=== PATIENT | female | born 1965 | race Native Hawaiian/Other Pacific Islander ===

== ENCOUNTER 2017-03-21 12:56 | Outpatient (CLI) | payer OTHER, BC | END 2017-03-21 20:15 | disposition home or self-care (01) | LOC: MAMMO 12:56 | DX: Z12.31 Encounter for screening mammogram for malignant neoplasm of breast (principal) ==

== ENCOUNTER 2017-12-16 07:55 | Outpatient (CLI) | payer OTHER, BC | END 2017-12-16 19:14 | disposition home or self-care (01) | LOC: MRI 07:55 | DX: M54.17 Radiculopathy, lumbosacral region (principal) ==

== ENCOUNTER 2019-08-03 06:44 | Emergency (ER) | payer OTHER, BC ==
[~2019-08-03] VITALS: Ht 162.6 cm; Wt 78.0 kg
[2019-08-03 06:51] VITALS: BP 162/61; TEMP 97.7
== END 2019-08-03 07:33 | disposition home or self-care (01) ==
LOC: ED 06:44
DX: M54.5 Low back pain (principal); G89.29 Other chronic pain; M54.16 Radiculopathy, lumbar region
CPT/HCPCS: 96372; 99283; J1885; J2930

== ENCOUNTER 2019-08-04 09:56 | Outpatient (CLI) | payer OTHER, BC | END 2019-08-04 19:09 | disposition home or self-care (01) | LOC: MRI 09:56 | DX: M54.5 Low back pain (principal); M54.17 Radiculopathy, lumbosacral region; R26.89 Other abnormalities of gait and mobility ==

== ENCOUNTER 2020-03-01 10:01 | Outpatient (CLI) | payer OTHER, BC | END 2020-03-01 21:43 | disposition home or self-care (01) | LOC: RAD 10:01 | PROVIDERS: ATTEND Family Medicine | DX: S69.91XA Unspecified injury of right wrist, hand and finger(s), initial encounter (principal) ==

== ENCOUNTER 2022-05-14 11:09 | Outpatient (CLI) | payer OTHER, BC | END 2022-05-14 19:04 | disposition home or self-care (01) | LOC: RAD 11:09 | PROVIDERS: ATTEND Nurse Practitioner Family | DX: R10.32 Left lower quadrant pain (principal) ==